=== PATIENT | male | born 2000 | race Caucasian/White ===

== ENCOUNTER 2021-01-03 21:04 | Emergency (ER) | payer OTHER ==
[2021-01-03 21:19] VITALS: BP 150/90
[2021-01-03] MEDS ORDERED: HYDROcod/ACET 5/325 Prepack 4 PO STA (21:34)
--- NOTE | 2021-01-03 21:35 | ED Physician Documentation ---
History of Present Illness - Stated complaint Stated Complaint: TOOTH PX - Chief complaint Chief Complaint: Heent - History obtained from History obtained from: Patient - Additonal information Additional information: 48 hours of dental pain mostly from left maxillary incisor and left mandibular incisor. He was told previously when he had a similar episode that it was because his teeth rub together. Review of Systems Constitutional: reports: Reviewed and negative Eyes: reports: Reviewed and negative Ears: reports: Reviewed and negative Nose: reports: Reviewed and negative PD PAST MEDICAL HISTORY - Present Medications Home Medications: Ambulatory Orders Medication Instructions Recorded Confirmed HYDROcod/ACETAM 5/325 [[place] 5/325] 1 - 2 tab PO Q6H PRN #7 tablet 01/03/21 - Allergies Allergies/Adverse Reactions: Allergies Allergy/AdvReac Type Severity Reaction Status Date / Time No Known Drug Allergies Allergy Verified 01/03/21 21:16 PD ED PE NORMAL - Vitals Vital signs reviewed: Yes - General General: Alert and oriented X 3, No acute distress - HEENT HEENT: Other (He is missing enamel on his incisors especially superiorly. No evidence of infection though.) - Neck Neck: Supple, no meningeal sign, No bony TTP - Neuro Neuro: Alert and oriented X 3, Normal speech Results - Vitals Vitals: Vital Signs - 24 hr 01/03/21 21:04 Temperature 37.0 C Heart Rate 70 Respiratory 18 Rate Blood Pressure 150/90 H O2 Saturation 100 Oxygen O2 Source Room air Departure - Departure Disposition: 01 Home, Self Care Clinical Impression: Pain, dental Condition: Good Record reviewed to determine appropriate education?: Yes Instructions: ED Tooth Pain Prescriptions: HYDROcod/ACETAM 5/325 [[place] 5/325] 1 - 2 tab PO Q6H PRN #7 tablet PRN Reason: Pain Comments: [place]. Continue naproxen when pain is not too bad.
== END 2021-01-03 21:40 | disposition home or self-care (01) ==
LOC: ED 21:04
DX: K08.89 Other specified disorders of teeth and supporting structures (principal)
CPT/HCPCS: 99282; 99283

== ENCOUNTER 2021-01-04 20:11 | Emergency (ER) | payer OTHER ==
[2021-01-04] MEDS ORDERED: CLINDAMYCIN 150 MG CAPSULE PO STA (20:59)
--- NOTE | 2021-01-04 21:01 | ED Physician Documentation ---
PD HPI HEENT - Stated complaint Stated Complaint: FACIAL SWELLING - Chief complaint Chief Complaint: Heent - History obtained from History obtained from: Patient - Additional information Additional information: Seen yesterday for dental pain. He was given some pain medication but there was no obvious infection. Today he has left-sided facial swelling but no fevers. Review of Systems Constitutional: reports: Reviewed and negative Eyes: reports: Reviewed and negative PD PAST MEDICAL HISTORY - Present Medications Home Medications: Ambulatory Orders Medication Instructions Recorded Confirmed HYDROcod/ACETAM 5/325 [[place] 5/325] 1 - 2 tab PO Q6H PRN #7 tablet 01/03/21 01/04/21 clindamycin HCL [Cleocin HCl] 300 mg PO QID #28 cap 01/04/21 - Allergies Allergies/Adverse Reactions: Allergies Allergy/AdvReac Type Severity Reaction Status Date / Time No Known Drug Allergies Allergy Verified 01/04/21 20:50 PD ED PE NORMAL - Vitals Vital signs reviewed: Yes - General General: Alert and oriented X 3, No acute distress - HEENT HEENT: Other (He has freely draining pus from #10 gumline but no palpable abscess but he does have some reactive swelling of the left cheek.) - Neck Neck: Supple, no meningeal sign, No bony TTP - Neuro Neuro: Alert and oriented X 3, Normal speech Results - Vitals Vitals: Vital Signs - 24 hr 01/04/21 20:47 Temperature 36.6 C Heart Rate 122 H Respiratory 16 Rate Blood Pressure 140/85 H O2 Saturation 97 Oxygen O2 Source Room air Departure - Departure Disposition: Home, Self Care Clinical Impression: Dental abscess Condition: Good Record reviewed to determine appropriate education?: Yes Instructions: ED Dental Abscess Facial Cellulitis Prescriptions: clindamycin HCL [Cleocin HCl] 300 mg PO QID #28 cap Comments: Go to [facility] tomorrow. Forms: Activity restrictions
[2021-01-04 21:14] VITALS: BP 135/78
== END 2021-01-04 21:16 | disposition home or self-care (01) ==
LOC: ED 20:11
DX: K04.7 Periapical abscess without sinus (principal)
CPT/HCPCS: 99282; 99283; A9270